=== PATIENT | male | born 1985 | race Caucasian/White ===

== ENCOUNTER 2025-03-01 15:30 | Observation (INO) | payer BC ==
[2025-03-01 16:41] LABS: Absolute Eosinophils 0.4 K/uL (0-0.5); Absolute Lymphocytes (CBC) 1.8 K/uL (0.7-4.9); Absolute Monocytes 1.1 K/uL (0.1-1.3); Absolute Neutrophil 7.8 K/uL (1.8-8.0); Basophils % 0.4 % (0-1.3); Eosinophils % 3.3 % (0-4.4); Hematocrit 39.3 % (39.6-49.0); Hemoglobin 13.8 g/dL (13.6-17.9); Lymphocytes % 16.1 % (15.3-44.8); MCH 31.2 pg (27.0-35.0); MCHC 35.2 g/dL (32.0-36.0); MCV 88.6 fL (80-100); MPV 8.6 fL (7.6-11.3); Monocytes % 9.6 % (3.3-12.3); Neutrophils % 70.6 % (41.7-73.7); Nucleated Red Blood Cells % 0.1 % (0-0); Platelets 180 thou/uL (152-406); RBC Red Blood Cell Count 4.44 M/uL (4.33-5.43); Red Cell Distribution Width 13.5 % (12.1-15.2)
[2025-03-01 16:55] LABS: Anion Gap 6.9 mEq/L (5.0-15.0); Potassium 3.9 mEq/L (3.5-5.1)
--- NOTE | 2025-03-01 17:42 | RAD REPORT ---
EXAM: CT pelvis with contrast HISTORY: Pelvic and hip pain rectal pain; hx of rectal abscess COMPARISON: None TECHNIQUE: Multiple contiguous axial images were obtained and a CT of the pelvis with IV contrast. Sa gittal and coronal reformats were performed. One or more of the following dose reduction techniques were used: Automated exposure control, adjustment of the mA and/or kV according to patient size, and/ or iterative reconstruction. FINDINGS: 17 x 12 mm perianal rim-enhancing collection likely perirectal abscess. Prominent stool retention with fecalization of the distal ileum. No worrisome bony finding. Mild scro carisa fluid. IMPRESSION: 17 x 12 mm perirectal abscess.
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
[2025-03-01] MEDS ORDERED: NA CHLORIDE 0.9% 100 ML ONE (18:08)
[2025-03-01] MEDS ORDERED: PIPERACIL/TAZO 3.375 GM VIAL IV ONE (18:09)
[2025-03-01] MEDS ORDERED: ONDANSETRON 4 MG/2 ML VIAL IV PRN (18:14)
[2025-03-01] MEDS ORDERED: ACETAMINOPHEN 500 MG TAB PO PRN (18:14)
[2025-03-01] MEDS: PIPER TAZO 3.375 GM in NA CHLORIDE 0.9% 100 ML IV SCH (18:18)
--- NOTE | 2025-03-01 18:18 | P.HP ---
Certification for Inpatient Patient admitted to: Observation With expected LOS: <2 Midnights Practitioner: I am a practitioner with admitting privileges, knowledge of patient current condition, hospital course, and medical plan of care. Services: Services provided to patient in accordance with Admission requirements found in Title 42 Section 412.3 of the Code of Federal Regulations Patient History Date of Service: 03/01/25 Reason for admission: perirectal abscess History of Present Illness: Patient is a 39-year-old male with no significant past medical history seizure disorder and neuropathy. He presents to the ER complaining of rectal pain. Patient is describing a spontaneous and non-traumatic pain that has gotten worse. He has been found to have perirectal abscess. He has no feverHe has mild WBC elevation. General surgery has been consulted for possible I&D tomorrow. Patient is being admitted for surgical evaluation. He will be n.p.o. after midnight. Physical Examination - Physical Exam General: In no apparent distress HEENT: Atraumatic, Normocephalic Respiratory: Clear to auscultation bilaterally, Normal air movement Cardiovascular: No edema, Normal pulses, Regular rate/rhythm, Normal S1 S2 Neurological: Normal speech - Studies Laboratory Data (last 24 hrs) 03/01/25 03/01/25 16:35 16:35 WBC 11.00 H Hgb 13.8 Hct 39.3 L Plt Count 180 Sodium 139 Potassium 3.9 BUN 24 H Creatinine 1.47 H Glucose 100 Assessment and Plan - Problems (Diagnosis) (1) Perirectal abscess Current Visit: Yes Status: Acute - Plan Assessment This is a generally healthy 39-year-old male who is presenting with an acute perirectal abscess. Perirectal abscess Seizure disorder Neuropathy Plan: Will admit under observation IV fluid infusion and Zosyn for empiric coverage Multimodal pain regimen N.p.o. after midnight for possible I&D tomorrow Consult general surgery Karene nelida - Advance Directives Does patient have a Living Will: No Does patient have a Durable POA for Healthcare: No
[2025-03-01] MEDS: NA CHLORIDE 0.9% 1,000 ML IV SCH (20:23)
[2025-03-01] MEDS: CODEINE 30MG/APAP 300MG TAB PO PRN (20:28)
[2025-03-01] MEDS: HYDROMORPHONE HCL 1 MG/ML INJ IV PRN (21:29)
[2025-03-01 22:23] VITALS: O2SAT 96; BMI 28.8
[2025-03-02 07:39] LABS: Absolute Eosinophils 0.5 K/uL (0-0.5); Absolute Lymphocytes (CBC) 2.1 K/uL (0.7-4.9); Absolute Monocytes 0.9 K/uL (0.1-1.3); Absolute Neutrophil 5.4 K/uL (1.8-8.0); Basophils % 0.3 % (0-1.3); Eosinophils % 5.5 % (0-4.4); Hematocrit 39.4 % (39.6-49.0); Hemoglobin 13.7 g/dL (13.6-17.9); Lymphocytes % 23.9 % (15.3-44.8); MCH 31.2 pg (27.0-35.0); MCHC 34.8 g/dL (32.0-36.0); MCV 89.6 fL (80-100); MPV 8.8 fL (7.6-11.3); Monocytes % 10.1 % (3.3-12.3); Neutrophils % 60.2 % (41.7-73.7); Nucleated Red Blood Cells % 0.1 % (0-0); Platelets 166 thou/uL (152-406); Red Cell Distribution Width 13.3 % (12.1-15.2)
[2025-03-02 07:49] LABS: Anion Gap 7.6 mEq/L (5.0-15.0); Phosphorus 2.9 mg/dL (2.5-4.9)
[2025-03-02 07:52] LABS: Potassium 4.6 mEq/L (3.5-5.1)
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
[2025-03-02] MEDS: ENOXAPARIN 40 MG/0.4 ML SQ SCH (09:00)
[2025-03-02] MEDS: levETIRAcetam 750 MG in NA CHLORIDE 0.9% 100 ML IV ONE (10:00)
[2025-03-02] MEDS: levETIRAcetam 500 MG TAB PO SCH (10:09)
[2025-03-02] MEDS ORDERED: Ringers Lactate 1,000 ML IV ONE (10:19)
[2025-03-02] MEDS: Ringers Lactate 1,000 ML IV ONE (10:25)
[2025-03-02] MEDS ORDERED: MIDAZOLAM HCL 2 MG/2 ML INJ ONE (11:23)
[2025-03-02] MEDS ORDERED: FENTANYL CITR 100 MCG/2 ML ONE (11:23)
[2025-03-02] MEDS ORDERED: propofoL 200 MG/20 ML VIAL IV ONE (11:24)
[2025-03-02] MEDS ORDERED: dexAMETHasone 10 MG/ML VIAL ONE (11:37)
[2025-03-02] MEDS ORDERED: ONDANSETRON 4 MG/2 ML VIAL ONE (11:37)
[2025-03-02] MEDS ORDERED: KETOROLAC 30 MG/ML INJ ONE (11:37)
--- NOTE | 2025-03-02 11:41 | P.BOP ---
Preoperative diagnosis: perirectal abscess Postoperative diagnosis: same Primary procedure: Incision and drainage of perirectal abscess Secondary procedure: EUA, anoscopy, rigid proctoscopy Estimated blood loss: <5cc Specimen: pus Findings: abscess Anesthesia: General Complications: None Drain(s): Other (1/4" iodoform packing) Transferred to: Recovery Room Condition: Good
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
[2025-03-02] MEDS: BUPIVACAINE 0.5% PF 10 ML VIAL ONE (11:50)
[2025-03-02] MEDS ORDERED: GLYCOPYRROLATE 0.2 MG/ML SYR ONE (12:02)
--- NOTE | 2025-03-02 12:29 | OP ---
Date of Procedure: 03/02/2025 Surgeon: Sacha Salazar MD Preoperative Diagnoses: Perirectal abscess, perianal tenderness. Postoperative Diagnoses: Perirectal abscess, perianal tenderness. Procedure: Incision and drainage of perirectal abscess, examination under anesthesia, anoscopy, rigi d proctoscopy. Estimated Blood Loss: Less than 5 cc. Specimen: Pus. Findings: Abscess. Anesthesia: General plus local. Packing: A quarter of an inch iodoform. Indications: This is a case of a 39-year-old patient who came to us with perianal tenderness, finall y diagnosed with abscess in the perirectal region on the CT scan. Benefits, alternatives, and risks of an EUA, anoscopy, proctoscopy, I and D of perirectal abscess fully explained, which include, but n ot limited to, infection, bleeding, damage to adjacent structures, anesthesia complication, recurrenc e, TN, and even . He also understands the chance of anal stricture, anal incontinence, bowel pe rforation. He understands the chance of recurrence and the importance of following up with his color ectal surgeon, computer art instructor as an outpatient. He was also explained that he will have a pack in that area that need to be removed at least within the next 48 hours. He is planning to leave after this procedure. He is welcome to come to our office. We will not open until Tuesday or stay with us and we will remove the packing. He does not want to do so. So, it is imperative he remember that. He w as fully explained. He verbalized it back. He understand. Description Of Procedure: The patient was brought to the operating room, placed in supine position. Anesthesia was induced without complication. The patient was placed in lithotomy position with prop er protection. A time-out was called. The area was prepped and draped in a sterile fashion. With t he rectal examination, we were able to encounter the area of the swelling and we put an 18-gauge need le and aspirated at least 2 cc of pus from that area. We localized the area, made an incision right in that region. The pus was sent for culture. Cavity was entered. Irrigation was done. Local anes thesia was applied and then we packed the area with quarter of an inch iodoform. Patient tolerated t he procedure well. No bleeding. The patient was covered with sterile dressings. Patient on his way to recovery in stable condition. CONNER/CHAUNCEY Voice ID: [id number] Report ID: [id number]
[2025-03-02 13:27] VITALS: BP 111/80; TEMP 97
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
== END 2025-03-02 14:48 | disposition home or self-care (01) ==
LOC: ER 15:30 → ERHOLD 18:14 → 2ND 19:15
PROVIDERS: ADMIT Internal Medicine; ATTEND Hospitalist
PROC: 0DJD8ZZ Inspection of Lower Intestinal Tract, Via Natural or Artificial Opening Endoscopic (ICD-10-PCS; 2025-03-02)
PROC: 0D9P0ZZ Drainage of Rectum, Open Approach (ICD-10-PCS; principal; 2025-03-02 10:45)
DX: K61.1 Rectal abscess (principal); N17.9 Acute kidney failure, unspecified; R56.9 Unspecified convulsions; G62.9 Polyneuropathy, unspecified
CPT/HCPCS: 87070; 85025 ×2; 80048 ×2; 36415 ×2; 83735; 87205; 84100; 83605; 87075; 87077; 87186; 72193; 96374; 99285; 46040; 45300; Q9967; J1953; J2704; J2543 ×3; J2250; J3010; J1100; J1171 ×3; J2405; J7120; J7030 ×2; G0378 ×3; J1650